=== PATIENT | male | born 1955 | race Two or more races ===

== ENCOUNTER 2020-08-12 20:47 | Emergency (ER) | payer SELFPAY ==
[~2020-08-12] VITALS: Ht 170.2 cm; Wt 58.3 kg
--- NOTE | 2020-08-12 20:55 | NUR ---
Confirmed covid pos since aug 04. Speaks very full complete sentences at triage, says his cough is not getting better has been taking robitussen dm. Hx htn
--- NOTE | 2020-08-12 21:40 | NUR ---
EKG AT TRIAGE
[2020-08-12] MEDS ORDERED: FILTER 0.22 MICRON IV ONE (22:00)
[2020-08-12] MEDS ORDERED: BAMLANIVIMAB 700 MG in SODIUM CHLORIDE 0.9% 250 ML IVPB ONE (22:30)
--- NOTE | 2020-08-12 22:31 | NUR ---
PT RESTING IN [facility], ALL MONITORS IN PLACE, PIV ESTABLISHED, CXR COMPLETED, LABS PENDING, PHARMACY SENT POSITIVE COVID RESULTS, AWAITING BAM FROM PHARMACY.
[2020-08-12 22:39] LABS: BASOPHILS % (AUTO) 0 % (0-1); EOSINOPHILS % (AUTO) 5 % (1-7); LYMPHOCYTES % (AUTO) 16 % (22-44); MEAN CORPUSCULAR HEMOGLOBIN 31.6 pg (27.5-34.5); MEAN CORPUSCULAR HGB CONC 33.9 g/dL (33.2-36.2); MEAN PLATELET VOLUME 8.7 fL (7.4-10.4); MONOCYTES % (AUTO) 10 % (2-9); NEUTROPHILS % (AUTO) 69 % (42-75); PLATELET COUNT 277 x10^3/uL (130-400); RED BLOOD COUNT 5.09 x10^6/uL (4.38-5.82); RED CELL DISTRIBUTION WIDTH 13.7 % (9.4-14.8)
[2020-08-12 22:42] LABS: ALANINE AMINOTRANSFERASE 34 U/L (12-78); ALBUMIN 4.1 g/dL (3.4-5.0); ANION GAP 7 mmol/L (5-15); CALCIUM 9.1 mg/dL (8.5-10.1); CHLORIDE 101 mmol/L (98-107)
[2020-08-12 22:44] LABS: MD NO
[2020-08-12 22:46] LABS: ALKALINE PHOSPHATASE 101 U/L (45-117); BILIRUBIN,TOTAL 1.3 mg/dL (0.2-1.0); TOTAL PROTEIN 8.1 g/dL (6.4-8.2); TROPONIN I < 0.015 ng/mL (0.000-0.045)
[2020-08-13 01:20] VITALS: BP 117/61
== END 2020-08-13 02:57 | disposition home or self-care (01) ==
LOC: ED 08-13 02:56
DX: U07.1 COVID-19 (principal); R07.89 Other chest pain; I10 Essential (primary) hypertension
CPT/HCPCS: 36415; 71045; 80053; 84484; 85025; 93005; 99285; J7050; M0239; Q0239

== ENCOUNTER 2020-09-01 10:36 | Outpatient (CLI) | payer MEDICARE | END 2020-09-01 23:59 | disposition home or self-care (01) | LOC: RAD 10:36 | PROVIDERS: ATTEND Family Medicine | DX: R05 Cough (principal) | CPT/HCPCS: 71046 ==

== ENCOUNTER 2020-10-17 11:36 | Emergency (ER) | payer MEDICARE, OTHER ==
[~2020-10-17] VITALS: Ht 170.2 cm; Wt 59.2 kg
[2020-10-17 13:10] LABS: BASOPHILS % (AUTO) 1 % (0-1); EOSINOPHILS % (AUTO) 7 % (1-7); LYMPHOCYTES % (AUTO) 34 % (22-44); MEAN CORPUSCULAR HEMOGLOBIN 30.3 pg (27.5-34.5); MEAN CORPUSCULAR HGB CONC 33.9 g/dL (33.2-36.2); MEAN PLATELET VOLUME 8.6 fL (7.4-10.4); MONOCYTES % (AUTO) 8 % (2-9); NEUTROPHILS % (AUTO) 50 % (42-75); PLATELET COUNT 246 x10^3/uL (130-400); RED BLOOD COUNT 4.92 x10^6/uL (4.38-5.82); RED CELL DISTRIBUTION WIDTH 13.7 % (9.4-14.8)
[2020-10-17 13:11] LABS: MD NO
[2020-10-17 13:20] LABS: ALANINE AMINOTRANSFERASE 62 U/L (12-78); ALBUMIN 3.8 g/dL (3.4-5.0); ANION GAP 5 mmol/L (5-15); C-REACTIVE PROTEIN, QUANT 0.11 mg/dL (0.02-0.49); CHLORIDE 105 mmol/L (98-107); CREATININE 1.04 mg/dL (0.7-1.3)
[2020-10-17] MEDS ORDERED: GADOTERATE 10 MMOL/20 ML VIAL ONE (13:21)
--- NOTE | 2020-10-17 13:31 | NUR ---
OFF THE FLOOR TO MRI
[2020-10-17 13:46] LABS: ALKALINE PHOSPHATASE 89 U/L (45-117); BILIRUBIN,TOTAL 0.9 mg/dL (0.2-1.0); TOTAL PROTEIN 7.2 g/dL (6.4-8.2)
--- NOTE | 2020-10-17 14:34 | NUR ---
PT BACK FROM MRI
--- NOTE | 2020-10-17 14:43 | NUR ---
BREAK RN: PT TAKEN TO MRI.
--- NOTE | 2020-10-17 15:23 | NUR ---
PT BACK FROM MRI
[2020-10-17 15:29] LABS: MICROSCOPIC NOT IND
[2020-10-17 16:05] VITALS: BP 119/64
--- NOTE | 2020-10-17 16:40 | NUR ---
PT REC'VD DISCHARGE INSTRUCTIONS AND EDUCATION. PT HAD NO FURTHER QUESTIONS. PT AMBULATED TO DC AREA, STEADY GAIT.
[2020-10-18 11:01] LABS: QUANTIFERON TB Ag1-NIL 0.45 (0.000-0.000)
[2020-10-19 14:30] LABS: ANA SCREEN NEGATIVE (Negative)
== END 2020-10-17 16:48 | disposition home or self-care (01) ==
LOC: ED 11:56
DX: R51.9 Headache, unspecified (principal); R42 Dizziness and giddiness; R20.2 Paresthesia of skin; I10 Essential (primary) hypertension
CPT/HCPCS: 36415; 70544; 70549; 70553; 80053; 81003; 82164; 82607; 85025; 85613; 85651; 85670; 85705; 85732; 86038; 86140; 86480; 99285; A9575

== ENCOUNTER → 2020-11-23 | Outpatient (CLI) | payer OTHER | END | disposition home or self-care (01) | LOC: CVU 07:44 | PROVIDERS: ATTEND Psychiatry & Neurology Neurology | DX: I08.8 Other rheumatic multiple valve diseases (principal); R44.2 Other hallucinations; H35.413 Lattice degeneration of retina, bilateral; G51.31 Clonic hemifacial spasm, right; D56.9 Thalassemia, unspecified | CPT/HCPCS: 93306; 93356 ==

== ENCOUNTER → 2020-11-28 | Outpatient (CLI) | payer OTHER ==
[~2020-11-28] MED LIST: OMNIPAQUE 350 MG/ML, 100ML BOTTLE ONE
== END | disposition home or self-care (01) ==
LOC: CFH 13:06
PROVIDERS: ATTEND Psychiatry & Neurology Neurology
DX: J84.10 Pulmonary fibrosis, unspecified (principal); D86.9 Sarcoidosis, unspecified; G51.31 Clonic hemifacial spasm, right; H35.413 Lattice degeneration of retina, bilateral; R44.2 Other hallucinations
CPT/HCPCS: 71260; Q9967